=== PATIENT | female | born 1940 | race Caucasian/White ===

== ENCOUNTER → 2018-02-26 | Outpatient (CLI) | payer MEDICARE | END | disposition home or self-care (01) | LOC: RAH 14:46 | PROVIDERS: ATTEND Family Medicine | DX: M25.471 Effusion, right ankle (principal); M77.31 Calcaneal spur, right foot | CPT/HCPCS: 73721 ==

== ENCOUNTER → 2018-03-07 | Outpatient (CLI) | payer MEDICARE | END | disposition home or self-care (01) | LOC: RAH 14:12 | PROVIDERS: ATTEND Podiatrist | DX: T84.19 Other mechanical complication of internal fixation device of bones of limb (principal); M85.872 Other specified disorders of bone density and structure, left ankle and foot; M25.472 Effusion, left ankle; L89.614 Pressure ulcer of right heel, stage 4; X58.XXXS Exposure to other specified factors, sequela | CPT/HCPCS: 73610 ==

== ENCOUNTER 2018-10-12 11:57 | Inpatient (IN) | payer MEDICARE | END 2018-11-01 00:26 | LOC: EDH 11:57 → 3AH 10-14 19:49 → 2DH 10-19 05:04 → 2AH 10-13 22:21 → 3DH 15:38 | PROC: 0BC68ZZ Extirpation of Matter from Right Lower Lobe Bronchus, Via Natural or Artificial Opening Endoscopic (ICD-10-PCS; principal; ~2018-10-12) | PROC: 0B9F7ZX Drainage of Right Lower Lung Lobe, Via Natural or Artificial Opening, Diagnostic (ICD-10-PCS; ~2018-10-12) | PROC: 0BH17EZ Insertion of Endotracheal Airway into Trachea, Via Natural or Artificial Opening (ICD-10-PCS; ~2018-10-12) | DX: N17.0 Acute kidney failure with tubular necrosis (principal); G92 Toxic encephalopathy; J96.01 Acute respiratory failure with hypoxia; J18.1 Lobar pneumonia, unspecified organism; I13.0 Hypertensive heart and chronic kidney disease with heart failure and stage 1 through stage 4 chronic kidney disease, or unspecified chronic kidney disease; N39.0 Urinary tract infection, site not specified; J98.11 Atelectasis; E87.1 Hypo-osmolality and hyponatremia; I50.32 Chronic diastolic (congestive) heart failure; K92.2 Gastrointestinal hemorrhage, unspecified; R53.1 Weakness; R79.89 Other specified abnormal findings of blood chemistry; R34 Anuria and oliguria; M25.512 Pain in left shoulder; I10 Essential (primary) hypertension; R41.82 Altered mental status, unspecified; I48.0 Paroxysmal atrial fibrillation; K44.9 Diaphragmatic hernia without obstruction or gangrene; J98.6 Disorders of diaphragm ==

== ENCOUNTER → 2018-11-18 | Outpatient (CLI) | payer OTHER ==
[~2018-11-18] MED LIST: ACET1030H IH; ACET160S PEG; ALBU2.5V2 IH; ASPI-555 PO; ATOR10 PO; ATOR10TA PO; BALS60OI TP; CHLO473M2 PO; CLIN600P11 IV; DOCU100T PO; FERR-82 PO; FERR325T22 PO; FLUC200T INJ; FLUT16H NS; FOLI0.8T2 PO; FURO20TA6 IVP; HYDR-3420 INJ; IPRNEB IH; LACT10SO9 PO; LIDOP TP; METO-391 IVP; METO100T14 PO; MINE60OI TP; MULT-1192 PO; MUPI22O TP; NAPR-1174 PO; NEXIUM; NITR0.4T SL; NYST15CR TP; OMEP-50 PO; ONDA220I IV; SUCR1TAB2 PO; VANC1PLA9 IV; [UNRECOGNIZED DRUG - CODE] IV; [UNRECOGNIZED DRUG - CODE] SQ; sodium chloride NASAL
--- NOTE | 2018-11-18 12:00 | NUR ---
U/S GD RT HIP ASPIRATION PROCEDURE PERFORMED BY DR Warren SMALL. PUNCTURE SITE RT HIP AND PATIENT TOLERATED PROCEDURE WELL. TOTAL REMOVED 500ML OF PURULENT FLUID. END OF PROCEDURE AT 1140. CATHETER REMOVED AND DRESSING APPLIED. NO BLEEDING NOTED. REPORT GIVEN TO CATRACHO AMBRIZ AND PATIENT TRANSPORTED TO [facility] AT 1200. PATIENT COMFORATBLE WITH NO C/O PAIN. SPECIMEN SENT TO LAB.
[2018-11-18 13:41] LABS: APPEARANCE BODY FLUID TURBID (CLEAR); SPECIMENTYPE,BODY FLUID OTHER
[2018-11-18 13:43] LABS: BODY FLUID WBC 16150 /cu. mm.; COLOR,BODY FLUID OTHER (LT YELLOW); TOTAL VOLUME,BODY FLUID 500 mL
[2018-11-18 13:44] LABS: BODY FLUID RBC 5075 /cu. mm.
[2018-11-18 14:47] LABS: BF EOSINOPHIL 1 %; BF LYMPHOCYTE 14 %; BF MESOTHELIAL 7 %; BF MONOCYTE 1 %
== END ==
LOC: RAH 08:14
PROVIDERS: ATTEND Internal Medicine Infectious Disease
DX: M16.0 Bilateral primary osteoarthritis of hip (principal); E87.0 Hyperosmolality and hypernatremia; G93.41 Metabolic encephalopathy; Z96.643 Presence of artificial hip joint, bilateral; K21.9 Gastro-esophageal reflux disease without esophagitis; I48.0 Paroxysmal atrial fibrillation; I50.32 Chronic diastolic (congestive) heart failure
CPT/HCPCS: 10005; 20611; 76942; 87071; 87205; 89051

== ENCOUNTER → 2018-11-19 | Outpatient (CLI) | payer OTHER ==
[~2018-11-19] MED LIST changes: +IOHEXOL-350 75 ML VIAL IV ONE
== END | disposition home or self-care (01) ==
LOC: RAH 16:02
PROVIDERS: ATTEND Internal Medicine
DX: K63.2 Fistula of intestine (principal); J90 Pleural effusion, not elsewhere classified; J98.11 Atelectasis
CPT/HCPCS: 74177; Q9967